=== PATIENT | male | born 1950 | race Caucasian/White ===

== ENCOUNTER 2020-10-05 00:33 | Inpatient (IN) | payer MEDICARE ==
[2020-10-05] MEDS ORDERED: Nitroglycerin 2% Ointment 1 INCH/1 GM Packet ONE (00:59)
[2020-10-05 01:03] LABS: #Basophils 0.1 thou/uL (0.0-0.2); #Eosinphils 0.2 thou/uL (0.0-0.7); #Lymphocytes 3.5 thou/uL (1.20-3.40); #Monocytes 0.7 thou/uL (0.11-0.59); #Neutrophils 3.8 thou/uL (1.40-6.50); %Basophils 1.3 % (0.0-1.0); %Eosinophils 1.9 % (0.0-10.0); %Lymphocytes 42.4 % (21.0-51.0); %Monocytes 8.2 % (0.0-10.0); %Neutrophils 46.2 % (42.0-75.0); Hemoglobin 14.6 g/dL (14.0-18.0); Mean Corpuscular HGB CONC 34.8 g/dL (32.0-36.0); Mean Corpuscular Hemoglobin 34.4 pg (27.0-31.0); Mean Corpuscular Volume 99.1 fL (78.0-98.0); Platelet Count 193 thou/uL (130-400); RBC Distribution Width 11.7 % (11.5-14.5); Red Blood Cell (RBC) Count 4.23 mill/uL (4.70-6.10); White Blood Cell (WBC) Count 8.2 thou/uL (4.8-10.8)
[2020-10-05] MEDS ORDERED: Acetaminophen 500 MG TAB ONE (01:20)
[2020-10-05 01:23] LABS: ALT (SGPT) 29 U/L (8-55); AST (SGOT) 21 U/L (5-34); Albumin 3.6 g/dL (3.4-4.8); Alkaline Phosphatase 52 U/L (40-110); Anion Gap 15 mmol/L (10-20); BUN (Urea Nitrogen) 18 mg/dL (8.4-25.7); Bilirubin, Total 0.2 mg/dL (0.2-1.2); Calc. Creatinine Clearance 0 mL/min (70-130); Calcium 9.1 mg/dL (7.8-10.44); Carbon Dioxide 22 mmol/L (23-31); Chloride 103 mmol/L (98-107); Glucose 114 mg/dL (80-115); Potassium 3.3 mmol/L (3.5-5.1); Protein, Total 6.6 g/dL (5.8-8.1); Sodium 137 mmol/L (136-145)
[2020-10-05] MEDS ORDERED: Fentanyl 100 MCG/2 ML VIAL ONE ×3 (01:34→14:44)
[2020-10-05] MEDS ORDERED: Heparin 10,000 UNITS/ 10 ML VIAL ONE ×2 (01:51→15:02)
[2020-10-05 02:13] LABS: Prothrombin Time 13.2 sec (12.0-14.7)
[2020-10-05 02:14] LABS: PTT 23.7 sec (22.9-36.1)
[2020-10-05] MEDS ORDERED: Heparin 25,000 units/D5W 500 ML ONE (02:32)
[2020-10-05] MEDS ORDERED: Morphine 2 MG/ML VIAL SLOW IVP PRN (04:06)
[2020-10-05] MEDS ORDERED: Nitroglycerin 0.4 MG TAB (25 Tab Bottle) SL PRN (04:06)
[2020-10-05] MEDS ORDERED: Heparin 25,000 units/D5W 500 ML IVPB SCH (04:15)
[2020-10-05] MEDS ORDERED: Heparin 10,000 UNITS/ 10 ML VIAL SLOW IVP SCH (04:15)
[2020-10-05] MEDS ORDERED: Labetalol HCl 100 MG/20 ML VIAL SLOW IVP PRN (04:26)
[2020-10-05] MEDS ORDERED: Promethazine HCl 12.5 MG in Sodium Chloride 0.9% 50 ML IVPB PRN (04:26)
[2020-10-05] MEDS ORDERED: Acetaminophen 325 MG TAB PO PRN (04:26)
[2020-10-05] MEDS ORDERED: Ondansetron PF 4 MG/2 ML Vial IVP PRN (04:26)
[2020-10-05] MEDS ORDERED: HYDROcodone/Acetaminophen 5/325 mg Tablet PO PRN (04:26)
[2020-10-05] MEDS ORDERED: Dextrose 50% Abboject 50 ML SYRINGE SLOW IVP PRN (04:27)
[2020-10-05] MEDS ORDERED: Dextrose 5% in Water 1,000 ML IV PRN (04:27)
[2020-10-05] MEDS ORDERED: HumaLOG 300 UNITS/3 ML VIAL SC PRN (04:27)
[2020-10-05] MEDS ORDERED: Electrolyte Replacement Protocol 1 EACH FS SCH (04:30)
[2020-10-05 04:49] LABS: Troponin I 0.278 ng/mL (< 0.028)
[2020-10-05 04:51] LABS: Hemoglobin 13.4 g/dL (14.0-18.0); Platelet Count 176 thou/uL (130-400)
[2020-10-05] MEDS ORDERED: Potassium Chloride 20 MEQ/100 ML PREMIX BAG ONE (06:27)
[2020-10-05] MEDS ORDERED: Ondansetron PF 4 MG/2 ML Vial ONE (06:31)
[2020-10-05] MEDS ORDERED: Potassium Chloride 20 MEQ in Sodium Chloride 0.9% 250 ML 250 ML IVPB SCH (07:30)
[2020-10-05 07:56] LABS: Hemoglobin A1c 5.2 % (4.0-6.0)
[2020-10-05 08:17] LABS: Troponin I 3.083 ng/mL (< 0.028)
[2020-10-05] MEDS: Metoprolol Tartrate 25 MG TAB PO SCH ×2 (08:48→21:47)
[2020-10-05] MEDS: Polyethylene Glycol 3350 17 GM Packet PO SCH (08:48)
[2020-10-05] MEDS ORDERED: Magnesium 2 GM/50 ML 2 GM in Premix Bag 1 BAG IVPB SCH ×2 (09:15→11:45)
[2020-10-05] MEDS ORDERED: Aspirin Chewable 81 MG TAB ONE (09:18)
[2020-10-05] MEDS ORDERED: Famotidine 20 MG TAB ONE (09:18)
[2020-10-05] MEDS ORDERED: Iopamidol 370 76% 50 ML VIAL FS ONE (09:52)
[2020-10-05] MEDS ORDERED: Iopamidol 370 76% 100 ML VIAL ONE (09:52)
[2020-10-05] MEDS ORDERED: Magnesium 2 GM/50 ML BAG (IN WATER) ONE (10:03)
[2020-10-05] MEDS: Aspirin Chewable 81 MG TAB PO SCH (10:08)
[2020-10-05] MEDS: Famotidine 20 MG TAB PO SCH ×2 (10:08→21:47)
[2020-10-05] MEDS ORDERED: Lidocaine 1% (PF) 30 ML VIAL ONE (13:29)
[2020-10-05] MEDS ORDERED: Midazolam HCl 2 mg/2 ml Vial ONE (14:45)
[2020-10-05] MEDS ORDERED: Adenosine 6 MG/2 ML VIAL ONE (15:09)
[2020-10-05] MEDS ORDERED: TICAGRELOR 90 MG TABLET ONE (15:21)
[2020-10-05] MEDS ORDERED: Nitroglycerin 100MG/250ML BOT 250 ML ONE (15:21)
[2020-10-05] MEDS ORDERED: Sodium Chloride 0.9% 500 ML IV SCH (15:45)
[2020-10-05 17:58] LABS: CKMB 173.9 ng/mL (0-6.6); Troponin I 33.175 ng/mL (< 0.028)
[2020-10-05] MEDS ORDERED: Morphine 2 MG/ML VIAL ONE (18:48)
[2020-10-05] MEDS: Nitroglycerin 2% Ointment 1 INCH/1 GM Packet TOP SCH ×2 (20:33→21:48)
[2020-10-05] MEDS ORDERED: Atorvastatin Calcium 40 MG TAB PO SCH ×2 (21:00)
[2020-10-05] MEDS ORDERED: Ibuprofen 200 MG TAB PO PRN (21:02)
[2020-10-05] MEDS: TICAGRELOR 90 MG TABLET PO SCH (21:47)
[2020-10-05] MEDS: Rosuvastatin 20 MG TAB PO SCH (21:47)
[2020-10-05 22:30] LABS: CKMB 179.8 ng/mL (0-6.6); Critical Call Chem Troponin I 0; Troponin I 34.198 ng/mL (< 0.028)
[2020-10-05 23:47] VITALS: BMI 34.1
[2020-10-06] MEDS: Nitroglycerin 2% Ointment 1 INCH/1 GM Packet TOP SCH (02:56)
[2020-10-06] MEDS ORDERED: Sodium Chloride 0.9% 500 ML IV SCH (03:00)
[2020-10-06 04:46] LABS: #Eosinphils 0.1 thou/uL (0.0-0.7); #Lymphocytes 2.1 thou/uL (1.20-3.40); #Monocytes 0.7 thou/uL (0.11-0.59); #Neutrophils 4.8 thou/uL (1.40-6.50); %Basophils 0.1 % (0.0-1.0); %Eosinophils 1.2 % (0.0-10.0); %Lymphocytes 27.5 % (21.0-51.0); %Monocytes 8.5 % (0.0-10.0); %Neutrophils 62.7 % (42.0-75.0); Hemoglobin 11.5 g/dL (14.0-18.0); Mean Corpuscular HGB CONC 33.9 g/dL (32.0-36.0); Mean Platelet Volume 7.2 fL (7.4-10.4); Platelet Count 153 thou/uL (130-400); RBC Distribution Width 11.7 % (11.5-14.5); Red Blood Cell (RBC) Count 3.38 mill/uL (4.70-6.10); White Blood Cell (WBC) Count 7.6 thou/uL (4.8-10.8)
[2020-10-06 05:28] LABS: ALT (SGPT) 38 U/L (8-55); AST (SGOT) 149 U/L (5-34); Albumin 2.8 g/dL (3.4-4.8); Alkaline Phosphatase 43 U/L (40-110); Anion Gap 8 mmol/L (10-20); BUN (Urea Nitrogen) 9 mg/dL (8.4-25.7); Bilirubin, Total 0.4 mg/dL (0.2-1.2); Calc. Creatinine Clearance 119 mL/min (70-130); Calcium 7.5 mg/dL (7.8-10.44); Carbon Dioxide 23 mmol/L (23-31); Cardiac Risk 2.7 (Less than 4.5); Chloride 110 mmol/L (98-107); Cholesterol 120 mg/dl (< 200 Desired); Globulin 2.2 g/dL (2.4-3.5); Glucose 92 mg/dL (80-115); HDL Cholesterol 44 mg/dL (>60 Neg Risk); LDL Cholesterol, Calculated 50 mg/dL; Potassium 3.6 mmol/L (3.5-5.1); Sodium 137 mmol/L (136-145); Triglycerides 128 mg/dL (Less than 150)
[2020-10-06] MEDS ORDERED: Potassium Chloride 20 MEQ TAB PO SCH (07:45)
[2020-10-06] MEDS: Aspirin Chewable 81 MG TAB PO SCH (08:24)
[2020-10-06] MEDS: Famotidine 20 MG TAB PO SCH ×2 (08:24→21:28)
[2020-10-06] MEDS: Polyethylene Glycol 3350 17 GM Packet PO SCH (08:24)
[2020-10-06] MEDS: TICAGRELOR 90 MG TABLET PO SCH (08:25)
[2020-10-06] MEDS: Metoprolol Tartrate 25 MG TAB PO SCH (08:29)
[2020-10-06] MEDS ORDERED: Furosemide 40 MG/4 ML VIAL SLOW IVP SCH (14:15)
[2020-10-06] MEDS ORDERED: TICAGRELOR 90 MG TABLET PO SCH (21:00)
[2020-10-06] MEDS: Rosuvastatin 20 MG TAB PO SCH (21:27)
[2020-10-07] MEDS: Clopidogrel Bisulfate 75 MG TAB PO SCH (09:54)
[2020-10-07] MEDS: Famotidine 20 MG TAB PO SCH ×2 (09:54→20:55)
[2020-10-07] MEDS: Aspirin Chewable 81 MG TAB PO SCH (09:54)
[2020-10-07] MEDS: Polyethylene Glycol 3350 17 GM Packet PO SCH (09:55)
[2020-10-07 10:36] LABS: #Basophils 0.1 thou/uL (0.0-0.2); #Eosinphils 0.1 thou/uL (0.0-0.7); #Lymphocytes 1.6 thou/uL (1.20-3.40); #Monocytes 0.9 thou/uL (0.11-0.59); #Neutrophils 6.8 thou/uL (1.40-6.50); %Basophils 0.6 % (0.0-1.0); %Eosinophils 1.6 % (0.0-10.0); %Lymphocytes 16.8 % (21.0-51.0); %Monocytes 9.8 % (0.0-10.0); %Neutrophils 71.3 % (42.0-75.0); Hemoglobin 13.4 g/dL (14.0-18.0); Mean Corpuscular HGB CONC 34.2 g/dL (32.0-36.0); Mean Corpuscular Hemoglobin 34.1 pg (27.0-31.0); Mean Corpuscular Volume 99.7 fL (78.0-98.0); Mean Platelet Volume 7.3 fL (7.4-10.4); Platelet Count 170 thou/uL (130-400); RBC Distribution Width 11.7 % (11.5-14.5); Red Blood Cell (RBC) Count 3.92 mill/uL (4.70-6.10); White Blood Cell (WBC) Count 9.6 thou/uL (4.8-10.8)
[2020-10-07 10:55] LABS: Anion Gap 11 mmol/L (10-20); BUN (Urea Nitrogen) 9 mg/dL (8.4-25.7); Calc. Creatinine Clearance 119 mL/min (70-130); Calcium 8.3 mg/dL (7.8-10.44); Carbon Dioxide 21 mmol/L (23-31); Chloride 107 mmol/L (98-107); Glucose 105 mg/dL (80-115); Potassium 3.4 mmol/L (3.5-5.1); Sodium 136 mmol/L (136-145)
[2020-10-07] MEDS ORDERED: Potassium Chloride 20 MEQ TAB PO SCH (12:30)
[2020-10-07] MEDS ORDERED: Magnesium 2 GM/50 ML 2 GM in Premix Bag 1 BAG IVPB SCH (12:30)
[2020-10-07] MEDS: Rosuvastatin 20 MG TAB PO SCH (20:55)
[2020-10-08] MEDS: Aspirin Chewable 81 MG TAB PO SCH (09:07)
[2020-10-08] MEDS: Famotidine 20 MG TAB PO SCH (09:07)
[2020-10-08] MEDS: Clopidogrel Bisulfate 75 MG TAB PO SCH (09:07)
[2020-10-08] MEDS: Polyethylene Glycol 3350 17 GM Packet PO SCH (09:08)
[2020-10-08] MEDS ORDERED: Carvedilol 3.125 MG TAB PO SCH ×2 (09:45→17:00)
[2020-10-08 09:54] LABS: #Eosinphils 0.1 thou/uL (0.0-0.7); #Lymphocytes 1.9 thou/uL (1.20-3.40); #Monocytes 0.7 thou/uL (0.11-0.59); #Neutrophils 5.2 thou/uL (1.40-6.50); %Basophils 0.2 % (0.0-1.0); %Eosinophils 1.5 % (0.0-10.0); %Lymphocytes 24.3 % (21.0-51.0); %Monocytes 8.4 % (0.0-10.0); %Neutrophils 65.7 % (42.0-75.0); Hemoglobin 14.5 g/dL (14.0-18.0); Mean Corpuscular HGB CONC 33.7 g/dL (32.0-36.0); Mean Corpuscular Hemoglobin 33.1 pg (27.0-31.0); Mean Corpuscular Volume 98.1 fL (78.0-98.0); Mean Platelet Volume 7.1 fL (7.4-10.4); Platelet Count 200 thou/uL (130-400); RBC Distribution Width 11.7 % (11.5-14.5); Red Blood Cell (RBC) Count 4.38 mill/uL (4.70-6.10); White Blood Cell (WBC) Count 7.9 thou/uL (4.8-10.8)
[2020-10-08 10:13] LABS: Anion Gap 11 mmol/L (10-20); BUN (Urea Nitrogen) 8 mg/dL (8.4-25.7); Calc. Creatinine Clearance 111 mL/min (70-130); Calcium 8.9 mg/dL (7.8-10.44); Carbon Dioxide 22 mmol/L (23-31); Chloride 105 mmol/L (98-107); Glucose 130 mg/dL (80-115); Potassium 3.8 mmol/L (3.5-5.1); Sodium 134 mmol/L (136-145)
[2020-10-08 15:00] VITALS: BP 135/81; TEMP 98
== END 2020-10-08 14:57 | disposition home or self-care (01) | DRG 247 ==
LOC: ERS 00:33 → ERHOLD 03:39 → 2NO 20:09
PROVIDERS: ADMIT Internal Medicine; ATTEND Internal Medicine
PROC: 027135Z Dilation of Coronary Artery, Two Arteries with Two Drug-eluting Intraluminal Devices, Percutaneous Approach (ICD-10-PCS; principal; 2020-10-05)
PROC: 4A023N7 Measurement of Cardiac Sampling and Pressure, Left Heart, Percutaneous Approach (ICD-10-PCS; 2020-10-05)
PROC: B2111ZZ Fluoroscopy of Multiple Coronary Arteries using Low Osmolar Contrast (ICD-10-PCS; 2020-10-05)
DX: I21.09 ST elevation (STEMI) myocardial infarction involving other coronary artery of anterior wall (principal); I50.40 Unspecified combined systolic (congestive) and diastolic (congestive) heart failure; R73.03 Prediabetes; I25.5 Ischemic cardiomyopathy; E66.9 Obesity, unspecified; E78.00 Pure hypercholesterolemia, unspecified; E87.6 Hypokalemia; I11.0 Hypertensive heart disease with heart failure; R94.31 Abnormal electrocardiogram [ECG] [EKG]; Z98.890 Other specified postprocedural states; Z86.79 Personal history of other diseases of the circulatory system; Z68.33 Body mass index [BMI] 33.0-33.9, adult
CPT/HCPCS: 36415; 36416; 71045; 80048; 80053; 80061; 82553; 83036; 83735; 83880; 84443; 84484; 85025; 85347; 85610; 85730; 92928; 93005; 93010; 93306; 93454; 93798; 96365; 96374; 96375; 96376; 97139; 99152; 99153; C1769; C9600; J0153; J1644; J1940; J2001; J2250; J2270; J2405; J3010; J3475; J3480; J7050; Q9967

== ENCOUNTER 2021-01-22 13:49 | Observation (INO) | payer MEDICARE ==
[~2021-01-22 13:49] MED LIST: Iopamidol-370 76% 500 ML 1 ML ONE
[2021-01-22 14:25] LABS: #Eosinphils 0.1 thou/uL (0.0-0.7); #Monocytes 1.4 thou/uL (0.11-0.59); #Neutrophils 10.6 thou/uL (1.40-6.50); %Basophils 0.1 % (0.0-1.0); %Eosinophils 0.8 % (0.0-10.0); %Lymphocytes 14.2 % (21.0-51.0); %Monocytes 9.7 % (0.0-10.0); %Neutrophils 75.2 % (42.0-75.0); Hemoglobin 14.9 g/dL (14.0-18.0); Mean Corpuscular HGB CONC 34.4 g/dL (32.0-36.0); Mean Corpuscular Hemoglobin 33.7 pg (27.0-31.0); Mean Corpuscular Volume 98.1 fL (78.0-98.0); Mean Platelet Volume 7.3 fL (7.4-10.4); Platelet Count 188 thou/uL (130-400); Red Blood Cell (RBC) Count 4.42 mill/uL (4.70-6.10); White Blood Cell (WBC) Count 14.1 thou/uL (4.8-10.8)
[2021-01-22 14:46] LABS: ALT (SGPT) 16 U/L (8-55); AST (SGOT) 16 U/L (5-34); Albumin 3.8 g/dL (3.4-4.8); Alkaline Phosphatase 70 U/L (40-110); Anion Gap 13 mmol/L (10-20); BUN (Urea Nitrogen) 11 mg/dL (8.4-25.7); Bilirubin, Total 0.6 mg/dL (0.2-1.2); Calc. Creatinine Clearance 0 mL/min (70-130); Carbon Dioxide 25 mmol/L (23-31); Chloride 100 mmol/L (98-107); Glucose 99 mg/dL (83-110); Potassium 4.2 mmol/L (3.5-5.1); Protein, Total 6.8 g/dL (5.8-8.1); Sodium 134 mmol/L (136-145)
[2021-01-22 16:30] LABS: Bilirubin Negative (Negative); Blood, Urine Negative (Negative); Clarity Clear (Clear); Glucose, Urine (Dipstick) Normal (Negative); Ketone, Urine Trace mg/dL (Negative); Leukocyte Negative Leu/uL (Negative); Nitrite Negative (Negative); Protein, Urine (Dipstick) Negative (Neg-Trace); Specific Gravity, Urine 1.037 (1.002-1.036); Urobilinogen Normal mg/dL (Less than 2); pH, Urine 5.5 (5.0-9.0)
[2021-01-22] MEDS ORDERED: Morphine 4 MG/ML VIAL ONE (20:46)
[2021-01-22] MEDS ORDERED: Ondansetron PF 4 MG/2 ML Vial ONE (20:46)
[2021-01-22] MEDS ORDERED: Ondansetron PF 4 MG/2 ML Vial IVP PRN (22:55)
[2021-01-22] MEDS ORDERED: Sodium Chloride 0.9% 1,000 ML IV SCH (23:00)
[2021-01-22 23:16] VITALS: BMI 29.0
[2021-01-22] MEDS ORDERED: FLU VACC QS2021-22(65YR UP)/PF 240 MCG/0.7 ML SYRINGE IM ONE (23:45)
[2021-01-23] MEDS ORDERED: Morphine 4 MG/ML VIAL SLOW IVP PRN (00:02)
[2021-01-23] MEDS: Carvedilol 3.125 MG TAB PO SCH ×3 (08:41→16:03)
[2021-01-23] MEDS: Aspirin Chewable 81 MG TAB PO SCH ×2 (08:41→09:15)
[2021-01-23] MEDS: Clopidogrel Bisulfate 75 MG TAB PO SCH ×2 (08:41→09:15)
[2021-01-23] MEDS: Rosuvastatin 20 MG TAB PO SCH ×2 (08:42→09:15)
[2021-01-23 09:37] LABS: #Eosinphils 0.3 thou/uL (0.0-0.7); #Lymphocytes 1.8 thou/uL (1.20-3.40); #Monocytes 0.9 thou/uL (0.11-0.59); #Neutrophils 5.1 thou/uL (1.40-6.50); %Basophils 0.5 % (0.0-1.0); %Eosinophils 3.1 % (0.0-10.0); %Lymphocytes 22.6 % (21.0-51.0); %Monocytes 11.2 % (0.0-10.0); %Neutrophils 62.5 % (42.0-75.0); Hemoglobin 14.1 g/dL (14.0-18.0); Mean Corpuscular HGB CONC 33.7 g/dL (32.0-36.0); Mean Corpuscular Hemoglobin 33.2 pg (27.0-31.0); Mean Corpuscular Volume 98.5 fL (78.0-98.0); Mean Platelet Volume 7.5 fL (7.4-10.4); Platelet Count 170 thou/uL (130-400); Red Blood Cell (RBC) Count 4.24 mill/uL (4.70-6.10); White Blood Cell (WBC) Count 8.1 thou/uL (4.8-10.8)
[2021-01-23] MEDS: Sodium Chloride 0.9% 1,000 ML IV SCH ×3 (10:00→21:15)
[2021-01-23 10:29] LABS: ALT (SGPT) 12 U/L (8-55); AST (SGOT) 11 U/L (5-34); Albumin 3.3 g/dL (3.4-4.8); Alkaline Phosphatase 57 U/L (40-110); Anion Gap 12 mmol/L (10-20); BUN (Urea Nitrogen) 10 mg/dL (8.4-25.7); Bilirubin, Total 0.3 mg/dL (0.2-1.2); Calc. Creatinine Clearance 110 mL/min (70-130); Calcium 8.5 mg/dL (7.8-10.44); Carbon Dioxide 25 mmol/L (23-31); Chloride 103 mmol/L (98-107); Globulin 2.5 g/dL (2.4-3.5); Glucose 77 mg/dL (83-110); Potassium 4.2 mmol/L (3.5-5.1); Protein, Total 5.8 g/dL (5.8-8.1); Sodium 136 mmol/L (136-145)
[2021-01-23 12:39] LABS: SARS-CoV-2 PCR by NAA Not Detected (NotDetected)
[2021-01-23] MEDS ORDERED: Polyethylene Glycol 3350 17 GM Packet PO SCH (20:45)
[2021-01-24] MEDS: Sodium Chloride 0.9% 1,000 ML IV SCH (06:43)
[2021-01-24 07:20] LABS: #Basophils 0.1 thou/uL (0.0-0.2); #Eosinphils 0.3 thou/uL (0.0-0.7); #Monocytes 0.8 thou/uL (0.11-0.59); #Neutrophils 4.7 thou/uL (1.40-6.50); %Basophils 0.9 % (0.0-1.0); %Eosinophils 3.7 % (0.0-10.0); %Lymphocytes 25.7 % (21.0-51.0); %Monocytes 10.4 % (0.0-10.0); %Neutrophils 59.3 % (42.0-75.0); Mean Corpuscular HGB CONC 33.4 g/dL (32.0-36.0); Mean Corpuscular Hemoglobin 33.7 pg (27.0-31.0); Mean Platelet Volume 7.1 fL (7.4-10.4); Platelet Count 150 thou/uL (130-400); Red Blood Cell (RBC) Count 4.17 mill/uL (4.70-6.10); White Blood Cell (WBC) Count 7.8 thou/uL (4.8-10.8)
[2021-01-24 07:34] LABS: CRP (Inflammatory) 6.42 mg/dL (= or < 0.5)
[2021-01-24 07:36] LABS: ALT (SGPT) 14 U/L (8-55); AST (SGOT) 14 U/L (5-34); Alkaline Phosphatase 51 U/L (40-110); Anion Gap 14 mmol/L (10-20); BUN (Urea Nitrogen) 13 mg/dL (8.4-25.7); Bilirubin, Total 0.3 mg/dL (0.2-1.2); Calc. Creatinine Clearance 107 mL/min (70-130); Calcium 8.6 mg/dL (7.8-10.44); Carbon Dioxide 23 mmol/L (23-31); Chloride 103 mmol/L (98-107); Glucose 84 mg/dL (83-110); Potassium 3.9 mmol/L (3.5-5.1); Sodium 136 mmol/L (136-145)
[2021-01-24 07:56] VITALS: TEMP 98.2
[2021-01-24] MEDS: Clopidogrel Bisulfate 75 MG TAB PO SCH (08:12)
[2021-01-24] MEDS: Rosuvastatin 20 MG TAB PO SCH (08:12)
[2021-01-24] MEDS: Carvedilol 3.125 MG TAB PO SCH (08:13)
[2021-01-24] MEDS: Aspirin Chewable 81 MG TAB PO SCH (08:13)
[2021-01-24] MEDS ORDERED: Polyethylene Glycol 3350 17 GM Packet PO SCH (09:00)
[2021-01-24] MEDS ORDERED: Magnevist 469MG/ML 20 ML VIAL ONE (11:21)
[2021-01-24 13:01] VITALS: BP 152/95
== END 2021-01-24 15:22 | disposition home or self-care (01) ==
LOC: ERS 13:49 → T4-B 21:22
PROVIDERS: ADMIT Internal Medicine; ATTEND Internal Medicine
DX: K85.90 Acute pancreatitis without necrosis or infection, unspecified (principal); K86.89 Other specified diseases of pancreas; D72.829 Elevated white blood cell count, unspecified; E87.1 Hypo-osmolality and hyponatremia; N28.1 Cyst of kidney, acquired; R73.03 Prediabetes; K57.30 Diverticulosis of large intestine without perforation or abscess without bleeding; K59.00 Constipation, unspecified; I11.0 Hypertensive heart disease with heart failure; I50.42 Chronic combined systolic (congestive) and diastolic (congestive) heart failure; I25.10 Atherosclerotic heart disease of native coronary artery without angina pectoris; E78.5 Hyperlipidemia, unspecified; Z20.822 Contact with and (suspected) exposure to COVID-19; Z79.02 Long term (current) use of antithrombotics/antiplatelets; Z79.82 Long term (current) use of aspirin; Z79.899 Other long term (current) drug therapy; Z95.5 Presence of coronary angioplasty implant and graft
CPT/HCPCS: 74177; 74183; 80053 ×3; 81003; 82378; 83690 ×2; 85025 ×3; 86140; 86301; 90662; 96361; 96374; 96375; 99285; G0008; U0003; U0005; 36415; 90471; 96376; G0378; J2270; J2405; J7050